=== PATIENT | male | born 1960 | race Caucasian/White ===

== ENCOUNTER 2020-03-09 18:13 | Emergency (ER) | payer OTHER ==
[2020-03-09] MEDS ORDERED: ASPIRIN (CHEWABLE) 81 MG TAB PO ONE (18:18)
[2020-03-09] MEDS ORDERED: SODIUM CHLORIDE 0.9% (FLUSH) 10 ML SYG IV PRN (18:18)
--- NOTE | 2020-03-09 18:22 | ED.PDOC ---
History of Present Illness - General Chief Complaint: Chest Pain/NC Time Seen by Provider: 03/09/20 18:17 Additional Information: 59 yo M with PMH HTN, RA and CAD, states 30 min prior to arrival developed clenching chest pain. Was walking in the heat when it started. Denies frequent chest pain. hx of cad, last evaluated 4 years ago,was told he did not need stents at that time. Only home medication is lisinopril, but ran out. patient does smoke. Continues to have chest pain. Has not taken an aspirin today. - History of Present Illness Initial Comments: 59 yo male with history of CAD Allergies/Adverse Reactions: Allergies NO KNOWN ALLERGY Allergy (Verified 03/09/20 19:11) Review of Systems - Review of Systems Constitutional: Denies: fever, malaise, weakness EENTM: Denies: eye pain, blurred vision Respiratory: Denies: cough, orthopnea, short of breath, stridor, wheezing Cardiology: States: chest pain. Denies: edema, palpitations, syncope Gastrointestinal/Abdominal: Denies: abdominal pain, constipation, diarrhea, nausea, vomiting Musculoskeletal: Denies: muscle pain, muscle stiffness Skin: Denies: change in color, rash Neurological: Denies: headache, numbness, paresthesia, seizure, tremors Endocrine: Denies: excessive sweating, flushing, intolerance to cold, intolerance to heat, unexplained weight gain, unexplained weight loss Hematologic/Lymphatic: Denies: anemia, blood clots, easy bleeding Past Medical History (General) - Patient Medical History Hx Hypertension: Yes Family Medical History - Family History Mother Family History: Unknown Physical Exam - Physical Exam General Appearance: Alert, Comfortable, No apparent distress Eyes, Ears, Nose, Throat Exam: normal ENT inspection, TMs normal, pharynx normal Neck: non-tender, full range of motion, supple, normal inspection, carotid bruit Respiratory: chest non-tender, lungs clear, normal breath sounds, no respiratory distress, no accessory muscle use Cardiovascular/Chest: normal peripheral pulses, regular rate, rhythm, no edema, no gallop, no JVD, no murmur Peripheral Pulses: radial,right: 2+, radial,left: 2+ Gastrointestinal/Abdominal: normal bowel sounds, non tender, soft, no organomegaly, no pulsatile mass Rectal Exam: deferred Extremity: normal range of motion, non-tender, normal inspection, no pedal edema, no calf tenderness 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 no prior to compare. Patient given 324 mg chewable aspirin. placed on monitor. Blood work unremarkable, I would not except his troponin to be elevated at this time due to the acute onset. Cardiac score 6. Patient given 0.5 mg subling nitro x 2. Chest pain improved, but still present. cxr no acute pathology. 03/09/20 19:27 will call [facility] for transfer for CAD rule out. Discussed with cardiology and hospitalist who accepted patient. Patient started on nitroglycerin drip for continued hypertension per hospitalist request. 03/09/20 20:41 The data reviewed when caring for this patient included: nurse notes etc. The history and assessments from nurses notes were reviewed and considered, and the patient's home medication list was also reviewed and co nsidered. My assessment and the results of testing completed here in the ED were discussed with the patient/family. All questions were answered, and they express understanding of my assessment and the plan. Patient was transferred in stable condition. - Results/Orders Results/Orders: 03/09/20 18:18 Sodium Chloride 0.9% (Flush) [Saline Flush Syringe] 3 ml IV PRN PRN 03/09/20 18:30 EKG STAT 03/09/20 19:13 URINALYSIS Stat 03/10/20 09:00 Pulse Ox Daily Laboratory Results WBC 10.8 K/mm3 (4.8-10.8) 03/09/20 18:40 RBC 4.47 M/mm3 (4.70-6.10) L 03/09/20 18:40 Hgb 15.1 gm/dL (14.0-18.0) 03/09/20 18:40 Hct 43.0 % (42.0-52.0) 03/09/20 18:40 MCV 96.1 fl (80.0-94.0) H 03/09/20 18:40 MCH 33.8 pg (27.0-31.0) H 03/09/20 18:40 MCHC 35.2 g/dL (33.0-37.0) 03/09/20 18:40 RDW 14.1 % (11.5-14.5) 03/09/20 18:40 Plt Count 233 K/mm3 (130-400) 03/09/20 18:40 MPV 7.9 fl (7.40-10.4) 03/09/20 18:40 Absolute Neuts (auto) 7.50 K/uL (1.8-6.8) H 03/09/20 18:40 Absolute Lymphs (auto) 2.20 K/uL (1.0-3.4) 03/09/20 18:40 Absolute Monos (auto) 0.60 K/uL (0.2-0.8) 03/09/20 18:40 Absolute Eos (auto) 0.40 K/uL (0.0-0.4) 03/09/20 18:40 Absolute Basos (auto) 0.10 K/uL (0.0-0.1) 03/09/20 18:40 Neutrophils % 69.1 % (42.0-78.0) 03/09/20 18:40 Lymphocytes % 20.8 % (20.0-50.0) 03/09/20 18:40 Monocytes % 5.7 % (2.0-9.0) 03/09/20 18:40 Eosinophils % 3.4 % (1.0-5.0) 03/09/20 18:40 Basophils % 1.0 % (0.0-2.0) 03/09/20 18:40 PT 10.3 SECONDS (9.0-10.9) 03/09/20 18:40 INR 1.04 (0.9-1.15) 03/09/20 18:40 PTT (SP) 26.2 SECONDS (21.8-31.6) 03/09/20 18:40 Sodium 138 mmol/L (135-145) 03/09/20 18:40 Potassium 3.6 mmol/L (3.6-5.0) 03/09/20 18:40 Chloride 102 mmol/L (101-111) 03/09/20 18:40 Carbon Dioxide 27 mmol/L (21-31) 03/09/20 18:40 Anion Gap 12.6 (12-18) 03/09/20 18:40 BUN 16 mg/dL (7-18) 03/09/20 18:40 Creatinine 1.31 mg/dL (0.6-1.3) H 03/09/20 18:40 BUN/Creatinine Ratio 12.2 (10-20) 03/09/20 18:40 Random Glucose 168 mg/dL (70-105) H 03/09/20 18:40 Serum Osmolality 280.7 mOsm/L (275-295) 03/09/20 18:40 Calcium 8.7 mg/dL (8.4-10.2) 03/09/20 18:40 Magnesium 1.9 mg/dL (1.8-2.5) 03/09/20 18:40 Total Bilirubin 0.7 mg/dL (0.2-1.0) 03/09/20 18:40 Direct Bilirubin 0.1 mg/dL (0-0.2) 03/09/20 18:40 Indirect Bilirubin 0.6 mg/dL (0.2-0.8) 03/09/20 18:40 AST 26 IU/L (10-42) 03/09/20 18:40 ALT 24 IU/L (10-60) 03/09/20 18:40 Alkaline Phosphatase 49 IU/L (42-121) 03/09/20 18:40 Creatine Kinase 169 IU/L (38-174) 03/09/20 18:40 CK-MB (CK-2) 3.2 ng/mL (0.0-4.4) 03/09/20 18:40 CK-MB (CK-2) % Not Reportable 03/09/20 18:40 Troponin I 0.03 ng/mL (0.01-0.05) 03/09/20 18:40 B-Natriuretic Peptide 36.4 pg/ml (0-100) 03/09/20 18:40 Serum Total Protein 7.2 gm/dL (6.4-8.2) 03/09/20 18:40 Albumin 4.0 g/dl (3.2-5.5) 03/09/20 18:40 Departure - Departure Clinical Impression: Chest pain Qualifiers: Chest pain type: unspecified Qualified Code(s): R07.9 - Chest pain, unspecified Hypertensive heart disease Qualifiers: Heart failure presence: unspecified whether heart failure present Qualified Code(s): I11.9 - Hypertensive heart disease without heart failure Disposition: Transfer to Hospital Condition: Good Departure Forms: ED Discharge - Pt. Copy, Patient Portal Self Enrollment Instructions: DI for Chest Pain Transfer to Outside Facility - Transfer Information Decision to Transfer Date: 03/09/20 Decision to Transfer Time: 19:30 Reason for Transfer: required specialist not available
--- NOTE | 2020-03-09 18:47 | RAD ---
XR CHEST 2 VIEWS HISTORY: Chest pain. COMPARISON: None. FINDINGS: The heart size is within normal limits. There is no pulmonary vascular congestion. No consolidation, pleural effusion, or pneumothorax is seen. The bony structures are preserved. IMPRESSION: No evidence of acute cardiopulmonary disease. Electronically signed by: Kevin Lake MD 03/09/2020 6:46 PM CDT
[2020-03-09] MEDS ORDERED: NITROGLYCERIN 0.4 MG 25 EA TAB SL ONE ×2 (18:54→19:22)
[2020-03-09] MEDS ORDERED: NITROGLYCERIN/D5W IV 50,000 MCG in PREMIX BOTTLE 1 BOTTLE IVS SCH (20:30)
[2020-03-09 20:35] VITALS: TEMP 97.4
[2020-03-09 21:13] VITALS: BP 171/107; O2SAT 94
== END 2020-03-09 21:05 | disposition short-term general hospital (02) ==
LOC: ER 18:13
DX: R07.9 Chest pain, unspecified (principal); I11.9 Hypertensive heart disease without heart failure; I25.10 Atherosclerotic heart disease of native coronary artery without angina pectoris; F17.200 Nicotine dependence, unspecified, uncomplicated
CPT/HCPCS: 71046; 80048; 80076; 81001; 82550; 82553; 83880; 84484; 85025; 85610; 85730; 87086; 87088; 87186; 93005; A4216